=== PATIENT | male | born 1945 | race Caucasian/White ===

== ENCOUNTER 2017-04-25 06:01 | Observation (INO) | payer MEDICARE ==
[~2017-04-25] VITALS: Ht 177.8 cm; Wt 96.3 kg
[2017-04-25] MEDS ORDERED: ASPIRIN 325 MG TABLET EC ONE (06:24)
[2017-04-25] MEDS ORDERED: SODIUM CHLORIDE 0.9% 1,000 ML IV SCH (06:24)
[2017-04-25] MEDS ORDERED: BISACODYL 5 MG EC TABLET PO PRN (06:30)
[2017-04-25] MEDS ORDERED: ONDANSETRON 2MG/ML, 2ML IVPush PRN (06:30)
[2017-04-25] MEDS ORDERED: BISACODYL 10 MG SUPP PR PRN (06:30)
[2017-04-25] MEDS ORDERED: ACETAMINOPHEN 325 MG TABLET PO PRN (06:30)
[2017-04-25] MEDS ORDERED: ASPIRIN 325 MG TABLET EC PO ONE (06:30)
[2017-04-25] MEDS ORDERED: ZOLPIDEM 5MG TABLET PO PRN (06:30)
[2017-04-25 06:31] VITALS: BP 151/71
[2017-04-25] MEDS ORDERED: VERAPAMIL 2.5 MG/ML, 2ML ONE (06:52)
[2017-04-25] MEDS ORDERED: MIDAZOLAM 1 MG/ML, 5ML ONE (06:52)
[2017-04-25] MEDS ORDERED: FENTANYL PF 100 MCG/2ML ONE (06:52)
[2017-04-25] MEDS ORDERED: TICAGRELOR 90 MG TABLET ONE (06:53)
[2017-04-25] MEDS ORDERED: BIVALIRUDIN 250 MG ONE (06:53)
[2017-04-25] MEDS ORDERED: HEPARIN 1,000 UNITS/ML, 10ML ONE (06:53)
[2017-04-25] MEDS ORDERED: LIDOCAINE 2%, 20ML ONE (06:53)
[2017-04-25] MEDS ORDERED: CLOP75TA22 PO (06:59)
[2017-04-25] MEDS ORDERED: PRAV10TA2 PO (06:59)
[2017-04-25] MEDS ORDERED: NITR2.5C3 PO (06:59)
[2017-04-25] MEDS ORDERED: TERA10CA3 PO (06:59)
[2017-04-25] MEDS ORDERED: ASPI-621 PO (06:59)
[2017-04-25] MEDS ORDERED: METF500T4 PO (06:59)
[2017-04-25] MEDS ORDERED: LEVO125T5 PO (06:59)
[2017-04-25] MEDS ORDERED: AMLO5TAB2 PO (06:59)
[2017-04-25] MEDS ORDERED: METO25TA35 PO (06:59)
[2017-04-25] MEDS ORDERED: DOCU240C53 PO (06:59)
[2017-04-25] MEDS ORDERED: ASCO-184 PO (06:59)
[2017-04-25] MEDS ORDERED: UBID10CA7 PO (06:59)
[2017-04-25] MEDS ORDERED: PANT40TA5 PO (06:59)
[2017-04-25] MEDS ORDERED: CETI10TA18 PO (06:59)
[2017-04-25] MEDS ORDERED: LOSA1TAB17 PO (06:59)
[2017-04-25] MEDS ORDERED: FLUT50DI IH (06:59)
[2017-04-25] MEDS ORDERED: NITROGLYCERIN 0.4 MG BOTTLE (25 TABS) SL PRN (10:30)
[2017-04-25] MEDS: SODIUM CHLORIDE 0.9% 1,000 ML IV SCH ×2 (11:45→19:31)
[2017-04-25 11:58] VITALS: BP 117/68
[2017-04-25 13:26] VITALS: BP 112/61
[2017-04-25] MEDS: metFORMIN 500 MG TABLET PO SCH (15:42)
[2017-04-25 18:52] VITALS: BP 154/70
[2017-04-25] MEDS ORDERED: TERAZOSIN 5MG CAPSULE PO SCH (21:00)
[2017-04-25] MEDS ORDERED: DOCUSATE CALCIUM 240 MG CAPSULE PO SCH (21:00)
[2017-04-25] MEDS ORDERED: PRAVASTATIN 20 MG TABLET PO SCH (21:00)
[2017-04-26] MEDS: SODIUM CHLORIDE 0.9% 1,000 ML IV SCH (01:02)
[2017-04-26 02:02] VITALS: BP 148/74
[2017-04-26 04:56] LABS: BLOOD UREA NITROGEN 17 mg/dL (7-18)
[2017-04-26] MEDS ORDERED: ASPIRIN 81 MG TABLET EC PO SCH (06:00)
[2017-04-26] MEDS ORDERED: LEVOTHYROXINE 125 MCG TABLET PO SCH (06:00)
[2017-04-26] MEDS ORDERED: PANTOPROZOLE 40MG TABLET PO SCH (07:30)
[2017-04-26 07:33] VITALS: BP 136/68
[2017-04-26] MEDS: metFORMIN 500 MG TABLET PO SCH (08:16)
[2017-04-26] MEDS ORDERED: HYDROCHLOROTHIAZIDE 25 MG TABLET PO SCH (09:00)
[2017-04-26] MEDS ORDERED: ASCORBIC ACID 500 MG TABLET PO SCH (09:00)
[2017-04-26] MEDS ORDERED: CETIRIZINE 10 MG TABLET PO SCH (09:00)
[2017-04-26] MEDS ORDERED: AMLODIPINE 5 MG TABLET PO SCH (09:00)
[2017-04-26] MEDS ORDERED: METOPROLOL TARTRATE 25 MG TABLET PO SCH (09:00)
[2017-04-26] MEDS ORDERED: LOSARTAN 50MG TABLET PO SCH (09:00)
[2017-04-26] MEDS ORDERED: CLOPIDOGREL 75 MG TABLET PO SCH (09:00)
[2017-04-26] MEDS ORDERED: METO25TA35 PO (10:08)
== END 2017-04-26 12:25 | disposition home or self-care (01) ==
LOC: OUT 06:01 → 5SO 09:35 → ORIP 15:32 → CACL 15:52 → 5SO 17:41
PROVIDERS: ADMIT Internal Medicine Cardiovascular Disease; ATTEND Internal Medicine Cardiovascular Disease
DX: I21.4 Non-ST elevation (NSTEMI) myocardial infarction (principal); I25.10 Atherosclerotic heart disease of native coronary artery without angina pectoris; E78.5 Hyperlipidemia, unspecified; E11.9 Type 2 diabetes mellitus without complications; E03.9 Hypothyroidism, unspecified; E78.2 Mixed hyperlipidemia; J32.8 Other chronic sinusitis; Z95.5 Presence of coronary angioplasty implant and graft
CPT/HCPCS: 36415; 80048; 82040; 85014; 85018; 85610; 93458; 93571; 99156; 99157; C1725; C1769; C1874; C1887; C1894; C9600; G0378; J0583; J1644; J2250; J3010; J3490; Q9967

== ENCOUNTER → 2018-09-28 | Outpatient (CLI) | payer MEDICARE ==
[~2018-09-28] MED LIST: AMLO-150 PO; ASCO-184 PO; ASPI81TA45 PO; CETI10TA18 PO; CLOP75TA52 PO; DOCU240C53 PO; FLUT50DI IH; LEVO125T5 PO; LOSA1TAB22 PO; METF500T17 PO; METO25TA35 PO; NITR2.5C3 PO; PANT40TA5 PO; PRAV10TA2 PO; REGADENOSON 0.4 MG/5 ML SYRINGE ONE; TERA10CA3 PO; UBID10CA7 PO
== END | disposition home or self-care (01) ==
LOC: CFH 07:56
PROVIDERS: ATTEND Internal Medicine Cardiovascular Disease
DX: I25.110 Atherosclerotic heart disease of native coronary artery with unstable angina pectoris (principal); E11.9 Type 2 diabetes mellitus without complications
CPT/HCPCS: 78452; 93017; A9502; J2785

== ENCOUNTER 2019-03-12 08:32 | Day surgery (SDC) | payer MEDICARE ==
[~2019-03-12] VITALS: Ht 174 cm; Wt 98.2 kg
[~2019-03-12 08:32] MED LIST changes: -REGADENOSON 0.4 MG/5 ML SYRINGE ONE
[2019-03-12] MEDS ORDERED: CLOPIDOGREL 75 MG TABLET PO ONE (09:00)
[2019-03-12] MEDS ORDERED: PLEASE ENTER HEIGHT AND WEIGHT MC SCH (09:00)
[2019-03-12] MEDS ORDERED: ASPIRIN 325 MG TABLET EC PO ONE (09:00)
[2019-03-12 09:04] VITALS: BP 153/74
[2019-03-12] MEDS ORDERED: TAMS-11 PO (09:20)
[2019-03-12] MEDS ORDERED: FINA5TAB4 PO (09:20)
[2019-03-12] MEDS ORDERED: PRASUGREL 10 MG TABLET ONE (09:25)
[2019-03-12] MEDS ORDERED: BIVALIRUDIN 250 MG ONE (09:26)
[2019-03-12] MEDS ORDERED: FENTANYL PF 100 MCG/2ML ONE (09:26)
[2019-03-12] MEDS ORDERED: LIDOCAINE-MPF 1%, 5ML ONE (09:26)
[2019-03-12] MEDS ORDERED: HEPARIN 1,000 UNITS/ML, 10ML ONE (09:26)
[2019-03-12] MEDS ORDERED: VERAPAMIL 2.5 MG/ML, 2ML ONE (09:26)
[2019-03-12] MEDS ORDERED: MIDAZOLAM 1 MG/ML, 2ML ONE (09:26)
[2019-03-12] MEDS ORDERED: SODIUM CHLORIDE 0.9% 1,000 ML IV SCH (11:30)
== END 2019-03-12 17:05 | disposition home or self-care (01) ==
LOC: CACL 08:32
PROVIDERS: ATTEND Internal Medicine Cardiovascular Disease
DX: I25.110 Atherosclerotic heart disease of native coronary artery with unstable angina pectoris (principal); I25.84 Coronary atherosclerosis due to calcified coronary lesion; I10 Essential (primary) hypertension; E78.2 Mixed hyperlipidemia; E11.9 Type 2 diabetes mellitus without complications; E03.9 Hypothyroidism, unspecified; Z72.89 Other problems related to lifestyle; Z79.82 Long term (current) use of aspirin; Z79.02 Long term (current) use of antithrombotics/antiplatelets; Z79.84 Long term (current) use of oral hypoglycemic drugs; Z79.899 Other long term (current) drug therapy; Z88.0 Allergy status to penicillin; Z88.2 Allergy status to sulfonamides; Z88.8 Allergy status to other drugs, medicaments and biological substances; Z95.5 Presence of coronary angioplasty implant and graft
CPT/HCPCS: 93005; 93458; 99156; 99157; C1725; C1760; C1769; C1874; C1887; C1894; C9600; J0583; J2250; J3010; Q9967; J1644

== ENCOUNTER 2019-03-19 16:07 | Emergency (ER) | payer MEDICARE ==
[~2019-03-19] VITALS: Ht 172.7 cm; Wt 97.5 kg
[~2019-03-19 16:07] MED LIST changes: +FINA5TAB4 PO; +TAMS-11 PO
--- NOTE | 2019-03-19 16:36 | NUR ---
PT TO ROOM FROM BR, GAIT STEADY. CONTACT WITH PT
--- NOTE | 2019-03-19 16:49 | NUR ---
74 YR OLD MALE HERE WITH C/O "JUST FEELING TIRED AND WEAK" HAD A STENT PLACED LAST FRIDAY. HAS HAD 2 PRIOR STENTS WITHOUT ANY "PROBLEMS" PT DENIES SOB, "BUT I HAVENT REALLY EVEN TESTED IT" PT PLACED ON MONITOR, SR WITH OCC PVC'S.
[2019-03-19] MEDS ORDERED: NITR0.4T41 SL (17:02)
[2019-03-19 17:22] LABS: INTERNATIONAL NORMALIZED RATIO 0.89 (0.93-1.1); PROTHROMBIN TIME 9.4 Seconds (9.6-11.5)
[2019-03-19 17:25] LABS: ALANINE AMINOTRANSFERASE 18 U/L (12-78); ALBUMIN 3.5 g/dL (3.4-5.0); ANION GAP 8 mmol/L (5-15); CALCIUM 8.8 mg/dL (8.5-10.1); CHLORIDE 99 mmol/L (98-107); CREATININE 0.95 mg/dL (0.7-1.3)
[2019-03-19 17:30] LABS: ALKALINE PHOSPHATASE 71 U/L (45-117); BILIRUBIN,TOTAL 0.4 mg/dL (0.2-1.0); TOTAL PROTEIN 7.3 g/dL (6.4-8.2); TROPONIN I < 0.015 ng/mL (0.000-0.045)
[2019-03-19 17:43] LABS: BASOPHILS # (AUTO) 0.02 x10^3/uL (0-0.1); BASOPHILS % (AUTO) 0 % (0-1); EOSINOPHILS # (AUTO) 0.09 x10^3/uL (0-0.4); EOSINOPHILS % (AUTO) 1 % (1-7); LYMPHOCYTES # (AUTO) 1.47 x10^3/uL (1-3.4); LYMPHOCYTES % (AUTO) 19 % (22-44); MD NO; MEAN CORPUSCULAR HEMOGLOBIN 29.9 pg (27.5-34.5); MEAN CORPUSCULAR HGB CONC 33.3 g/dL (33.2-36.2); MEAN CORPUSCULAR VOLUME 89.8 fL (81-97); MEAN PLATELET VOLUME 7.8 fL (7.4-10.4); MONOCYTES # (AUTO) 0.66 x10^3/uL (0.2-0.8); MONOCYTES % (AUTO) 9 % (2-9); NEUTROPHILS # (AUTO) 5.37 x10^3/uL (1.8-6.8); NEUTROPHILS % (AUTO) 71 % (42-75); PLATELET COUNT 292 x10^3/uL (130-400); RED BLOOD COUNT 4.84 x10^6/uL (4.38-5.82)
[2019-03-19] MEDS ORDERED: POTASSIUM CHLORIDE 20 MEQ TAB.ER.PRT PO ONE (18:00)
[2019-03-19] MEDS ORDERED: POTASSIUM CHLORIDE 20 MEQ TAB.ER.PRT ONE (18:06)
--- NOTE | 2019-03-19 18:11 | NUR ---
PT SITTING UP ON GURNEY, NO ACUTE DISTRESS NOTED. SR PER MONITOR WITH OCC PVC'S. PT MEDICATED ORDERED. PT UPDATED ON POC. NO NEEDS EXPRESSED AT THIS TIME.
--- NOTE | 2019-03-19 18:56 | NUR ---
REPORT TO KELLIE TAYLOR
--- NOTE | 2019-03-19 18:58 | NUR ---
RECEIVED REPORT FROM CLAUDIA WATSON.
--- NOTE | 2019-03-19 19:05 | NUR ---
back from Ultrasound. awaiting result.
[2019-03-19] MEDS ORDERED: LORazepam 2 MG/ML, 1ML IVPush ONE (20:00)
--- NOTE | 2019-03-19 20:09 | NUR ---
ERP at bedside for re-evaluation.
--- NOTE | 2019-03-19 20:27 | NUR ---
patient discharged with instruction. verbalized understanding.
[2019-03-19 20:28] VITALS: BP 134/65
== END 2019-03-19 20:30 | disposition home or self-care (01) ==
LOC: ED 17:26
DX: E87.6 Hypokalemia (principal); I25.10 Atherosclerotic heart disease of native coronary artery without angina pectoris; I10 Essential (primary) hypertension; E11.9 Type 2 diabetes mellitus without complications; E03.9 Hypothyroidism, unspecified; Z87.891 Personal history of nicotine dependence
CPT/HCPCS: 36415; 71045; 76700; 80053; 83880; 84484; 85025; 85610; 93005; 99284

== ENCOUNTER 2021-01-08 13:59 | Emergency (ER) | payer MEDICARE ==
[~2021-01-08] VITALS: Ht 172.7 cm; Wt 99.9 kg
[~2021-01-08 13:59] MED LIST changes: +NITR0.4T41 SL; +NITR2.5C12 PO; -NITR2.5C3 PO; -PANT40TA5 PO; +PANT40TA6 PO
--- NOTE | 2021-01-08 15:42 | NUR ---
supervisor speech: pt from lobby to room 43
--- NOTE | 2021-01-08 15:54 | NUR ---
pt arrived with complaints of LEYVA that presents behind both ears rated a 2/10 and is relieved with 2 advil. pt recently began to take nitro and states that he has noticed that the LEYVA follow shortly after nitro admin. Placed on continious BP and O2 monitor. A&O x4, CMS intact, VSS, ambulatory with steady gait. ABDON.
[2021-01-08] MEDS ORDERED: OMNIPAQUE 350 MG/ML, 100ML BOTTLE ONE (16:31)
--- NOTE | 2021-01-08 16:31 | NUR ---
Dr. Orozco at bedside to evaluate pt.
--- NOTE | 2021-01-08 16:59 | NUR ---
pt sitting in chair, playing ABDON aguilera.
[2021-01-08 17:00] LABS: BASOPHILS % (AUTO) 1 % (0-1); EOSINOPHILS % (AUTO) 2 % (1-7); LYMPHOCYTES % (AUTO) 28 % (22-44); MEAN CORPUSCULAR HEMOGLOBIN 29.2 pg (27.5-34.5); MEAN CORPUSCULAR HGB CONC 33.3 g/dL (33.2-36.2); MEAN PLATELET VOLUME 7.3 fL (7.4-10.4); MONOCYTES % (AUTO) 10 % (2-9); NEUTROPHILS % (AUTO) 59 % (42-75); PLATELET COUNT 261 x10^3/uL (130-400); RED BLOOD COUNT 5.51 x10^6/uL (4.38-5.82); RED CELL DISTRIBUTION WIDTH 13.6 % (9.4-14.8)
[2021-01-08] MEDS ORDERED: SODIUM CHLORIDE FLUSH 10ML SYR IVF ONE (17:00)
[2021-01-08 17:01] LABS: MD NO
[2021-01-08 17:04] LABS: ALBUMIN 3.9 g/dL (3.4-5.0); ANION GAP 6 mmol/L (5-15); CALCIUM 8.9 mg/dL (8.5-10.1); CHLORIDE 104 mmol/L (98-107)
[2021-01-08 17:08] LABS: TROPONIN I < 0.015 ng/mL (0.000-0.045)
--- NOTE | 2021-01-08 17:46 | NUR ---
pt back from CT
--- NOTE | 2021-01-08 18:50 | NUR ---
report received from jareth TAYLOR and jo TAYLOR. i assume care at this time
[2021-01-08 19:31] VITALS: BP 132/67
--- NOTE | 2021-01-08 19:31 | NUR ---
discharge instructions reviewed with patient. steady gait in room and to lobby. all personal belongings with patient. iv removed per dc protocol. denies CP on discharge.
== END 2021-01-08 19:44 | disposition home or self-care (01) ==
LOC: ED 19:38
DX: R51.9 Headache, unspecified (principal); I10 Essential (primary) hypertension; E11.9 Type 2 diabetes mellitus without complications; E03.9 Hypothyroidism, unspecified; I25.10 Atherosclerotic heart disease of native coronary artery without angina pectoris; Z90.89 Acquired absence of other organs
CPT/HCPCS: 36415; 70450; 70496; 70498; 80048; 82040; 84484; 85025; 93005; 99285; Q9967

== ENCOUNTER 2021-02-05 06:46 | Outpatient (CLI) | payer MEDICARE | END 2021-02-05 23:59 | disposition home or self-care (01) | LOC: CFH 06:46 | PROVIDERS: ATTEND Internal Medicine Cardiovascular Disease | DX: I08.3 Combined rheumatic disorders of mitral, aortic and tricuspid valves (principal); I21.19 ST elevation (STEMI) myocardial infarction involving other coronary artery of inferior wall; I11.9 Hypertensive heart disease without heart failure; I25.110 Atherosclerotic heart disease of native coronary artery with unstable angina pectoris | CPT/HCPCS: 78452; 93017; 93306; A9502 ==

== ENCOUNTER 2021-07-11 09:26 | Outpatient (CLI) | payer MEDICARE | END 2021-07-11 23:59 | disposition home or self-care (01) | LOC: CVU 09:26 | PROVIDERS: ATTEND Internal Medicine Cardiovascular Disease | DX: I08.0 Rheumatic disorders of both mitral and aortic valves (principal); I10 Essential (primary) hypertension; E78.5 Hyperlipidemia, unspecified | CPT/HCPCS: 93306 ==